=== PATIENT | female | born 1970 | race Caucasian/White ===

== ENCOUNTER → 2016-08-01 | Outpatient (CLI) | payer OTHER ==
[~2016-08-01] MED LIST: BUPR-86 PO; CELE200C PO
[2016-08-01 12:17] LABS: HEMOGLOBIN 13.6 g/dL (11.7-16.4)
== END | disposition home or self-care (01) ==
LOC: STAR 11:08
PROVIDERS: ATTEND Obstetrics & Gynecology Female Pelvic Medicine and Reconstructive Surgery
DX: Z01.818 Encounter for other preprocedural examination (principal); N92.0 Excessive and frequent menstruation with regular cycle; N94.89 Other specified conditions associated with female genital organs and menstrual cycle
CPT/HCPCS: 36415; 84703; 85025

== ENCOUNTER 2016-08-11 09:58 | Day surgery (SDC) | payer OTHER ==
[2016-08-01 11:57] VITALS: BP 105/72
[~2016-08-11] VITALS: Ht 160 cm; Wt 76.0 kg
[~2016-08-11 09:58] MED LIST changes: +BUPIVACAINE/PF-EPI 0.25% 1:200K ONE; +FLUORESCEIN SODIUM 500 MG/5 ML ONE
[2016-08-11] MEDS ORDERED: LACTATED RINGERS 1,000 ML IV SCH ×2 (10:10→14:34)
[2016-08-11] MEDS ORDERED: LIDOCAINE 1%, 2ML SQ PRN (10:30)
[2016-08-11 10:49] LABS: HCG UR OBC PASS
[2016-08-11] MEDS ORDERED: FENTANYL PF 250 MCG/5ML ONE (11:49)
[2016-08-11] MEDS ORDERED: MIDAZOLAM 1 MG/ML, 2ML ONE ×2 (11:49→15:01)
[2016-08-11] MEDS ORDERED: SCOPOLAMINE PATCH, 1.5MG PATCH.TD72 TD ONE (12:25)
[2016-08-11] MEDS ORDERED: PROPOFOL 10 MG/ML, 20ML ONE (12:48)
[2016-08-11] MEDS ORDERED: ROCURONIUM 10 MG/ML ONE (12:48)
[2016-08-11] MEDS ORDERED: CEFAZOLIN 1,000 MG ONE (12:48)
[2016-08-11] MEDS ORDERED: ONDANSETRON 2MG/ML, 2ML ONE (12:48)
[2016-08-11] MEDS ORDERED: KETOROLAC 30 MG/1 ML ONE (12:48)
[2016-08-11] MEDS ORDERED: NEOSTIGMINE 1 MG/ML, 10ML ONE (12:48)
[2016-08-11] MEDS ORDERED: GLYCOPYRROLATE 0.2MG/1ML ONE (12:48)
[2016-08-11] MEDS ORDERED: OXYcodone 5 MG/5 ML ORAL.SOL UDC PO PRN (13:30)
[2016-08-11] MEDS ORDERED: HYDROmorphone 1 MG/ML, 1ML IV PRN (13:30)
[2016-08-11] MEDS ORDERED: ONDANSETRON 2MG/ML, 2ML IVPush PRN ×2 (13:30→15:00)
[2016-08-11] MEDS ORDERED: ACETAMINOPHEN 325 MG TABLET PO PRN (13:30)
[2016-08-11] MEDS ORDERED: HYDROcodone/APAP 7.5-325MG/15ML UDC PO PRN (13:30)
[2016-08-11] MEDS ORDERED: MEPERIDINE/PF 25MG/0.5ML IVPush PRN (13:30)
[2016-08-11] MEDS ORDERED: PROMETHAZINE 25 MG/ML, 1ML IV PRN (13:30)
[2016-08-11] MEDS ORDERED: OXYcodone 5 MG/5 ML ORAL.SOL UDC ONE (14:41)
[2016-08-11] MEDS ORDERED: MEPERIDINE/PF 25MG/0.5ML ONE (14:51)
[2016-08-11] MEDS ORDERED: IBUPROFEN 600 MG TABLET PO PRN (15:00)
[2016-08-11] MEDS ORDERED: PROMETHAZINE 25 MG SUPP PR ONE (15:00)
[2016-08-11] MEDS ORDERED: OXYcodone/APAP 5/325MG TABLET PO PRN (15:00)
[2016-08-11] MEDS ORDERED: FENTANYL PF 100 MCG/2ML ONE (15:01)
[2016-08-11] MEDS: FENTANYL PF 100 MCG/2ML IV PRN ×2 (15:02→15:17)
[2016-08-11] MEDS: MIDAZOLAM 1 MG/ML, 2ML IV PRN ×2 (15:05→15:17)
[2016-08-11] MEDS ORDERED: IBUPROFEN 600 MG TABLET ONE (16:10)
[2016-08-11] MEDS ORDERED: OXYcodone/APAP 5/325MG TABLET ONE (18:17)
== END 2016-08-11 18:30 | disposition home or self-care (01) ==
LOC: OUT 09:58
PROVIDERS: ATTEND Obstetrics & Gynecology Female Pelvic Medicine and Reconstructive Surgery
DX: N80.0 Endometriosis of uterus (principal); F41.9 Anxiety disorder, unspecified; F32.9 Major depressive disorder, single episode, unspecified; M19.90 Unspecified osteoarthritis, unspecified site; I10 Essential (primary) hypertension; G43.909 Migraine, unspecified, not intractable, without status migrainosus
CPT/HCPCS: 58571; 81025; 88307; J0690; J1885; J2175; J2250; J2405; J2704; J2710; J3010; J7120; S2900; J3490

== ENCOUNTER 2016-11-21 15:51 | Emergency (ER) | payer OTHER ==
[~2016-11-21] VITALS: Ht 160 cm; Wt 76.2 kg
[~2016-11-21 15:51] MED LIST changes: -BUPIVACAINE/PF-EPI 0.25% 1:200K ONE; -FLUORESCEIN SODIUM 500 MG/5 ML ONE
[2016-11-21] MEDS ORDERED: SODIUM CHLORIDE FLUSH 10ML SYR IVF ONE (16:30)
[2016-11-21] MEDS ORDERED: SODIUM CHLORIDE 0.9% 1,000ML IVBOLUS ONE (16:30)
[2016-11-21 16:59] LABS: BLOOD UREA NITROGEN 14 mg/dL (7-18)
[2016-11-21 17:04] LABS: ASPARTATE AMINO TRANSFERASE 18 U/L (15-37)
[2016-11-21 19:13] VITALS: BP 102/65
[2016-11-22] MEDS ORDERED: OMNIPAQUE 350 MG/ML, 100ML BOTTLE ONE (03:26)
== END 2016-11-21 19:14 | disposition home or self-care (01) ==
LOC: ED 16:57
DX: R10.32 Left lower quadrant pain (principal); Z90.710 Acquired absence of both cervix and uterus
CPT/HCPCS: 36415; 74177; 80053; 81003; 85025; 85610; 85730; 86850; 86900; 99285; Q9967

== ENCOUNTER → 2016-11-29 | Outpatient (CLI) | payer OTHER | END | disposition home or self-care (01) | LOC: LAB 09:38 | PROVIDERS: ATTEND Physical Medicine & Rehabilitation Hospice and Palliative Medicine | DX: K58.1 Irritable bowel syndrome with constipation (principal); K64.9 Unspecified hemorrhoids; R63.0 Anorexia; R53.83 Other fatigue; R19.4 Change in bowel habit; R14.3 Flatulence; Z68.30 Body mass index [BMI] 30.0-30.9, adult | CPT/HCPCS: 36415; 82784; 83516; 86255 ==

== ENCOUNTER 2017-01-08 08:23 | Day surgery (SDC) | payer OTHER ==
[~2017-01-08] VITALS: Ht 160 cm; Wt 74.3 kg
[2017-01-08] MEDS ORDERED: LACTATED RINGERS 1,000 ML IV SCH (09:14)
[2017-01-08] MEDS ORDERED: [UNRECOGNIZED DRUG - OTHER] PO (09:16)
[2017-01-08 09:18] VITALS: BP 112/78
[2017-01-08] MEDS ORDERED: MIDAZOLAM 1 MG/ML, 2ML ONE (10:53)
[2017-01-08] MEDS ORDERED: ONDANSETRON 2MG/ML, 2ML ONE (10:59)
[2017-01-08] MEDS ORDERED: DEXAMETHASONE 4 MG/ML, 1ML ONE (10:59)
[2017-01-08] MEDS ORDERED: PROPOFOL 10 MG/ML, 20ML ONE (10:59)
[2017-01-08] MEDS ORDERED: ACETAMINOPHEN 325 MG TABLET PO PRN (11:00)
[2017-01-08] MEDS ORDERED: FENTANYL PF 100 MCG/2ML IV PRN (11:00)
[2017-01-08] MEDS ORDERED: OXYcodone 5 MG/5 ML ORAL.SOL UDC PO PRN (11:00)
== END 2017-01-08 12:50 ==
LOC: OUT 08:23
PROVIDERS: ATTEND Internal Medicine Gastroenterology
DX: K63.89 Other specified diseases of intestine (principal)
CPT/HCPCS: 45380; 88305; J1100; J2250; J2405; J2704; J7120

== ENCOUNTER 2018-11-30 11:21 | Emergency (ER) | payer OTHER ==
[~2018-11-30] VITALS: Ht 160 cm; Wt 79.4 kg
[~2018-11-30 11:21] MED LIST changes: +[UNRECOGNIZED DRUG - OTHER] PO
[2018-11-30 11:53] VITALS: BP 117/71
--- NOTE | 2018-11-30 11:53 | NUR ---
PT ARRIVED TO ROOM 22 AMBULATORY WITH . PT DRESSED IN GOWN AND RESTING ON GURNEY. PT AAO X 4 AND ATTACHED TO MONITOR, VSS. PT C/O HEADACHE WITH DIZZINESS, DENIES NAUSEA OR VOMITTING. PT STATES A BED FRAME FELL ON THE TOP OF HER HEAD ON THURSDAY, IMMEDIATE DIFFUSE HEADACHE, STILL CONTINUES. PT TOOK 600MG IBUPROFEN FOR PAIN RELIEF ON THURSDAY, NO RELIEF. PT THEN TOOK 50MG IMITREX THIS AM AT 0600, NO RELIEF. PT STATES CONCERN FOR CONCUSSION, WAS TOLD TO COME BY COWORKER FOR LOOKING PALE AND ACTING DIFFERENT. PT STATES "I FEEL SLOW AND FUZZY LIKE MY HEAD HAS A HEARTBEAT." CLAL LIGHT AND BELONGINGS WITHIN REACH, FLAL PRECAUTIONS IN PLACE. LAW AT BEDSIDE.
[2018-11-30] MEDS ORDERED: ACETAMINOPHEN 500 MG TABLET ONE (11:59)
[2018-11-30] MEDS ORDERED: ACETAMINOPHEN 500 MG TABLET PO ONE (12:00)
--- NOTE | 2018-11-30 12:05 | NUR ---
PT MEDICATED PER MD ORDER.
--- NOTE | 2018-11-30 12:51 | NUR ---
PT RESTING IN GURNEY WITH AT BEDSIDE, CALL LIGHT WITHIN REACH.
--- NOTE | 2018-11-30 13:20 | NUR ---
Patient/Caregiver given discharge instructions and they have confirmed that they understand the instructions. Patient ambulatory with steady gait.
== END 2018-11-30 13:21 | disposition home or self-care (01) ==
LOC: ED 13:09
DX: S06.0X0A Concussion without loss of consciousness, initial encounter (principal); R51 Headache; H53.8 Other visual disturbances; M62.81 Muscle weakness (generalized); W22.8XXA Striking against or struck by other objects, initial encounter; Y93.89 Activity, other specified; Y92.89 Other specified places as the place of occurrence of the external cause; Y99.8 Other external cause status
CPT/HCPCS: 70450; 99284

== ENCOUNTER → 2019-03-31 | Outpatient (CLI) | payer OTHER ==
[~2019-03-31] MED LIST changes: +GADOTERATE 7.5 MMOL/15 ML SYR ONE
== END | disposition home or self-care (01) ==
LOC: RAD 11:26
PROVIDERS: ATTEND Psychiatry & Neurology Neurology
DX: G43.909 Migraine, unspecified, not intractable, without status migrainosus (principal)
CPT/HCPCS: 70553; A9575

== ENCOUNTER → 2019-04-26 | Outpatient (CLI) | payer OTHER ==
[~2019-04-26] MED LIST changes: -GADOTERATE 7.5 MMOL/15 ML SYR ONE
[2019-04-26 07:47] LABS: CHOL/HDL RATIO 5.2; LDL/HDL RATIO 3.8 (0.5-3.0)
== END | disposition home or self-care (01) ==
LOC: LAB 07:11
PROVIDERS: ATTEND Family Medicine
DX: E78.5 Hyperlipidemia, unspecified (principal)
CPT/HCPCS: 36415; 80061; 82726

== ENCOUNTER → 2020-04-20 | Outpatient (CLI) | payer OTHER ==
[2020-04-20 07:58] LABS: BASOPHILS % (AUTO) 0 % (0-1); EOSINOPHILS % (AUTO) 1 % (1-7); LYMPHOCYTES % (AUTO) 43 % (22-44); MEAN CORPUSCULAR HEMOGLOBIN 30.5 pg (27.0-34.8); MEAN CORPUSCULAR HGB CONC 34.1 g/dL (32.4-35.8); MEAN PLATELET VOLUME 8.9 fL (7.4-10.4); MONOCYTES % (AUTO) 6 % (2-9); NEUTROPHILS % (AUTO) 50 % (42-75); PLATELET COUNT 209 x10^3/uL (130-400); RED BLOOD COUNT 4.46 x10^6/uL (3.82-5.3); RED CELL DISTRIBUTION WIDTH 12.9 % (9.6-15.2)
[2020-04-20 08:02] LABS: MD NO
[2020-04-20 08:08] LABS: ANION GAP 4 mmol/L (5-15); CALCIUM 9.3 mg/dL (8.5-10.1); CHLORIDE 109 mmol/L (98-107); CHOLESTEROL, TOTAL 234 mg/dL (140-239); TRIGLYCERIDES 134 mg/dL (50-200); VLDL CHOLESTEROL 27 mg/dL (0-25)
[2020-04-20 08:33] LABS: ALANINE AMINOTRANSFERASE 18 U/L (12-78); ALKALINE PHOSPHATASE 100 U/L (45-117); BILIRUBIN,TOTAL 0.3 mg/dL (0.2-1.0); CHOL/HDL RATIO 4.4; CREATININE 0.76 mg/dL (0.55-1.02); FOLATE LEVEL 5.3 ng/mL (3.1-17.5); FREE T4 (FREE THYROXINE) 0.92 ng/dL (0.76-1.46); HDL CHOL % 23 % (28-40); HDL CHOLESTEROL (DIRECT) 53 mg/dL (40-60); LDL CHOLESTEROL,CALCULATED 154 mg/dL (54-169); LDL/HDL RATIO 2.9 (0.5-3.0); TOTAL PROTEIN 7.6 g/dL (6.4-8.2)
== END | disposition home or self-care (01) ==
LOC: LAB 07:36
PROVIDERS: ATTEND Family Medicine
DX: R53.83 Other fatigue (principal); E78.5 Hyperlipidemia, unspecified; E55.9 Vitamin D deficiency, unspecified; Z79.899 Other long term (current) drug therapy
CPT/HCPCS: 36415; 80053; 80061; 82306; 82607; 82746; 84439; 84443; 84481; 85025; 86376; 86800

== ENCOUNTER → 2020-10-19 | Outpatient (CLI) | payer OTHER ==
[2020-10-19 08:50] LABS: BASOPHILS % (AUTO) 0 % (0-1); EOSINOPHILS % (AUTO) 2 % (1-7); LYMPHOCYTES % (AUTO) 39 % (22-44); MD NO; MEAN CORPUSCULAR HEMOGLOBIN 29.9 pg (27.0-34.8); MEAN CORPUSCULAR HGB CONC 33.7 g/dL (32.4-35.8); MEAN PLATELET VOLUME 8.6 fL (7.4-10.4); MONOCYTES % (AUTO) 6 % (2-9); NEUTROPHILS % (AUTO) 53 % (42-75); PLATELET COUNT 233 x10^3/uL (130-400); RED BLOOD COUNT 4.51 x10^6/uL (3.82-5.3); RED CELL DISTRIBUTION WIDTH 13.6 % (9.6-15.2)
[2020-10-19 10:02] LABS: ANION GAP 4 mmol/L (5-15); CALCIUM 9.3 mg/dL (8.5-10.1); CHLORIDE 109 mmol/L (98-107)
[2020-10-19 10:22] LABS: ALANINE AMINOTRANSFERASE 23 U/L (12-78); ALKALINE PHOSPHATASE 89 U/L (45-117); BILIRUBIN,TOTAL 0.3 mg/dL (0.2-1.0); CHOL/HDL RATIO 4.4; CHOLESTEROL, TOTAL 253 mg/dL (140-239); CREATININE 0.73 mg/dL (0.55-1.02); FREE T4 (FREE THYROXINE) 0.82 ng/dL (0.76-1.46); HDL CHOL % 23 % (28-40); HDL CHOLESTEROL (DIRECT) 57 mg/dL (40-60); LDL CHOLESTEROL,CALCULATED 173 mg/dL (54-169); TOTAL PROTEIN 7.6 g/dL (6.4-8.2); TRIGLYCERIDES 115 mg/dL (50-200); VLDL CHOLESTEROL 23 mg/dL (0-25)
== END | disposition home or self-care (01) ==
LOC: LAB 08:32
PROVIDERS: ATTEND Family Medicine
DX: E03.9 Hypothyroidism, unspecified (principal); E78.5 Hyperlipidemia, unspecified; R53.83 Other fatigue; E55.9 Vitamin D deficiency, unspecified; Z79.899 Other long term (current) drug therapy
CPT/HCPCS: 36415; 80053; 80061; 82306; 84439; 84443; 84481; 85025; 86376; 86800

== ENCOUNTER 2020-10-24 08:36 | Outpatient (CLI) | payer OTHER | END 2020-10-24 23:59 | disposition home or self-care (01) | LOC: CARD 08:36 | PROVIDERS: ATTEND Psychiatry & Neurology Neurology | DX: S09.90XS Unspecified injury of head, sequela (principal); X58.XXXS Exposure to other specified factors, sequela | CPT/HCPCS: 95819 ==